=== PATIENT | male | born 1980 | race Two or more races ===

== ENCOUNTER 2022-12-02 04:01 | Inpatient (IN) | payer MEDICAID ==
[~2022-12-02] VITALS: Ht 177.8 cm; Wt 83.4 kg
[2022-12-02 05:21] VITALS: PULSE 79; RESP 25; O2SAT 93
[2022-12-02 05:42] LABS: Alanine Aminotransferase 67 U/L (7-40); Albumin 4.7 g/dL (3.2-4.8); Alkaline Phosphatase 82 U/L (46-116); Anion Gap 15 (5-15); Aspartate Aminotransferase 84 U/L (13-40); BUN/Creatinine Ratio 9.1 (10.0-20.0); Blood Alcohol < 3.0 mg/dL (<10); Blood Urea Nitrogen 8 mg/dL (9-23); Calcium 9.5 mg/dL (8.7-10.4); Carbon Dioxide 19 mmol/L (20-30); Chloride 100 mmol/L (98-107); Glucose 144 mg/dL (74-106); Sodium 134 mmol/L (136-145)
[2022-12-02 05:43] LABS: Acetaminophen < 2.0 UG/ML (10.0-20.0); Bilirubin, Total 0.8 mg/dL (0.2-1.0); Total Protein 8.4 g/dL (5.7-8.2)
[2022-12-02 05:48] LABS: Salicylate < 3.0 mg/dL (2.8-20.0)
[2022-12-02 06:18] LABS: Basophils # (auto) 0 10 ^3/uL (0-0.2); Basophils % (auto) 0.2 % (0.0-2.0); Eosinophils # (auto) 0 10 ^3/uL (0-0.8); Hematocrit 34.9 % (41.0-53.0); Hemoglobin 11.4 g/dL (13.5-17.5); Lymphocytes # (auto) 0.4 10 ^3/uL (0.4-5.4); Lymphocytes % (auto) 5.9 % (10.0-50.0); Mean Corpuscular Hemoglobin 30.8 pg (28.0-32.0); Mean Corpuscular Hgb Conc. 32.7 g/dL (32.0-36.0); Mean Corpuscular Volume 94.3 fL (80.0-100.0); Monocytes # (auto) 0.9 10 ^3/uL (0-1.3); Monocytes % (auto) 14.3 % (0.0-12.0); Neutrophils # (auto) 4.8 10 ^3/uL (1.6-8.6); Neutrophils % (auto) 79.6 % (37.0-80.0); Nucleated Red Blood Cells % 0.1 %; Red Cell Distribution Width 16.7 % (11.8-14.3)
[2022-12-02 06:30] LABS: Urine Bacteria NONE SEEN /hpf (None Seen); Urine Blood 1+ /uL (Negative); Urine Clarity Clear (Clear); Urine Color Yellow (Yellow); Urine Mucus FEW (None Seen); Urine Protein, UAD 1+ (Negative); Urine Specific Gravity 1.019 (1.001-1.035); Urine Urobilinogen Normal (Negative); Urine WBC 1 /hpf (0 - 3)
[2022-12-02] MEDS ORDERED: ACETAMINOPHEN 325 MG TAB PO ONE (07:00)
[2022-12-02 07:40] VITALS: O2SAT 95
[2022-12-02] MEDS ORDERED: TETANUS-DIPTH-ACEL PERTUSSIS 0.5ML SYR Tdap IM ONE (08:30)
[2022-12-02] MEDS ORDERED: LORazepam 2MG/ML-1ML VIAL IV ONE ×2 (08:30→09:30)
[2022-12-02 08:57] LABS: Amphetamine Screen, Urine Neg (NEGATIVE); Barbiturate Scree,Urine Neg (NEGATIVE); Benzodiazephine Screen, Urine Neg (NEGATIVE); Cocaine Screen, Urine Neg (NEGATIVE); Opiate Scree,Urine Neg (NEGATIVE)
[2022-12-02 08:58] LABS: Cannabinoid Screen, Urine Neg (NEGATIVE); Phencyclidine Screen, Urine Neg (NEGATIVE)
[2022-12-02] MEDS ORDERED: ONDANSETRON HCL 4 MG/2 ML VIAL IV ONE (09:30)
[2022-12-02] MEDS ORDERED: LORazepam 2MG/ML-1ML VIAL IV PRN (10:45)
[2022-12-02] MEDS ORDERED: MORPHINE SULFATE INJ 2 MG/ml SYRG IV PRN (10:45)
[2022-12-02] MEDS ORDERED: THIAMINE 100mg/ml INJ (200mg/2ml VIAL) IV ONE (10:45)
[2022-12-02] MEDS ORDERED: NITROGLYCERIN 0.4 MG SL TAB SL PRN (10:45)
[2022-12-02] MEDS ORDERED: MULTIPLE VITAMIN TAB PO ONE (10:45)
[2022-12-02] MEDS ORDERED: ACETAMINOPHEN 325 MG TAB PO PRN (10:45)
[2022-12-02] MEDS ORDERED: FOLIC ACID 1 MG in D5W 5% 50 ML INJ SCH ×2 (10:45→13:30)
[2022-12-02] MEDS ORDERED: ONDANSETRON HCL 4 MG/2 ML VIAL IV PRN (10:45)
[2022-12-02] MEDS: SODIUM CHLORIDE 0.9% 1,000 ML IV SCH ×2 (11:00→19:13)
[2022-12-02 11:12] LABS: Triglycerides 80 mg/dL (< 150)
[2022-12-02 11:13] LABS: LDL Cholesterol 130 mg/dL (< 100)
[2022-12-02 11:14] LABS: Cholesterol 236 mg/dL (< 200); HDL Cholesterol 101 mg/dL (40-59)
[2022-12-02] MEDS: FOLIC ACID 1 MG, MULTIPLE VITAMIN 10 ML, MAGNESIUM SULF SDV 50% 8 MEQ, THIAMINE INJ 100... INJ SCH ×5 (15:29)
[2022-12-02 19:30] VITALS: PULSE 82; O2SAT 96
[2022-12-02 22:30] VITALS: BP 140/92; PULSE 63; RESP 18; TEMP 98.4; O2SAT 97
[2022-12-02 22:32] VITALS: PULSE 78; RESP 17; O2SAT 97
[2022-12-03] MEDS: SODIUM CHLORIDE 0.9% 1,000 ML IV SCH ×2 (03:06→11:45)
[2022-12-03 05:00] VITALS: BP 137/89; PULSE 64; RESP 18; TEMP 98.2; O2SAT 98
[2022-12-03 06:38] LABS: Basophils # (auto) 0 10 ^3/uL (0-0.2); Basophils % (auto) 0.5 % (0.0-2.0); Eosinophils # (auto) 0.1 10 ^3/uL (0-0.8); Eosinophils % (auto) 1.9 % (0.0-7.0); Hematocrit 34.6 % (41.0-53.0); Lymphocytes # (auto) 0.9 10 ^3/uL (0.4-5.4); Lymphocytes % (auto) 22.4 % (10.0-50.0); Mean Corpuscular Hemoglobin 30.9 pg (28.0-32.0); Mean Corpuscular Hgb Conc. 31.9 g/dL (32.0-36.0); Mean Corpuscular Volume 96.9 fL (80.0-100.0); Monocytes # (auto) 0.7 10 ^3/uL (0-1.3); Monocytes % (auto) 17.5 % (0.0-12.0); Neutrophils # (auto) 2.3 10 ^3/uL (1.6-8.6); Neutrophils % (auto) 57.7 % (37.0-80.0); Red Blood Cells 3.57 10^6/uL (4.5-5.90); Red Cell Distribution Width 16.4 % (11.8-14.3)
[2022-12-03 06:57] LABS: Alanine Aminotransferase 56 U/L (7-40); Albumin 4.5 g/dL (3.2-4.8); Alkaline Phosphatase 69 U/L (46-116); Anion Gap 7 (5-15); Aspartate Aminotransferase 81 U/L (13-40); BUN/Creatinine Ratio 11.5 (10.0-20.0); Bilirubin, Total 0.8 mg/dL (0.2-1.0); Blood Urea Nitrogen 9 mg/dL (9-23); Carbon Dioxide 23 mmol/L (20-30); Chloride 105 mmol/L (98-107); Glucose 102 mg/dL (74-106); Potassium 3.6 mmol/L (3.5-5.1); Sodium 135 mmol/L (136-145); Total Protein 7.3 g/dL (5.7-8.2)
[2022-12-03 08:00] VITALS: PULSE 56; RESP 16
[2022-12-03 08:30] VITALS: BP 145/92; PULSE 69; RESP 19; TEMP 98.8; O2SAT 96
[2022-12-03] MEDS ORDERED: THIAMINE 100mg/ml INJ (200mg/2ml VIAL) IV SCH (10:00)
[2022-12-03] MEDS ORDERED: MULTIPLE VITAMIN TAB PO SCH (10:00)
[2022-12-03 13:00] VITALS: BP 157/72; PULSE 58; RESP 20; TEMP 98.7; O2SAT 95
[2022-12-03] MEDS: FOLIC ACID 1 MG, MULTIPLE VITAMIN 10 ML, MAGNESIUM SULF SDV 50% 8 MEQ, THIAMINE INJ 100... INJ SCH ×5 (13:07)
[2022-12-03 16:30] VITALS: BP 144/90; PULSE 56; RESP 19; TEMP 99.1; O2SAT 97
[2022-12-03 22:00] VITALS: BP 152/93; PULSE 67; RESP 20; TEMP 98.9; O2SAT 99
[2022-12-04 08:00] VITALS: PULSE 67; RESP 16
[2022-12-04 09:00] VITALS: BP 131/72; PULSE 67; RESP 16; TEMP 97.7; O2SAT 98
[2022-12-04] MEDS ORDERED: PANTOPRAZOLE 40 MG TAB PO SCH (10:00)
[2022-12-04] MEDS ORDERED: THIAMINE HCL 100 MG TAB PO SCH (10:00)
[2022-12-04 12:39] VITALS: BP 126/90; PULSE 64; RESP 18; TEMP 98.9; O2SAT 98
[2022-12-04] MEDS: FOLIC ACID 1 MG, MULTIPLE VITAMIN 10 ML, MAGNESIUM SULF SDV 50% 8 MEQ, THIAMINE INJ 100... INJ SCH ×5 (13:58)
[2022-12-04 16:44] VITALS: BP 146/90; PULSE 59; RESP 17; TEMP 98.9; O2SAT 98
[2022-12-04 20:00] VITALS: PULSE 71; RESP 22
[2022-12-06 00:06] LABS: Vitamin D, 25-Hydroxy 25.1 ng/mL (30.0-100.0)
== END 2022-12-04 22:55 | disposition left against medical advice (07) | DRG 53 ==
LOC: ER 04:01 → EDBD 04:01 → TELE 10:46 → TELE-WESTW 22:11 → WEST WING 12-04 00:46
PROVIDERS: ADMIT Nurse Practitioner Family; ATTEND Nurse Practitioner Acute Care
DX: R56.9 Unspecified convulsions (principal); E66.01 Morbid (severe) obesity due to excess calories; F10.239 Alcohol dependence with withdrawal, unspecified; R73.9 Hyperglycemia, unspecified; F20.9 Schizophrenia, unspecified; F32.A Depression, unspecified; F41.9 Anxiety disorder, unspecified; Z59.00 Homelessness unspecified; Z68.26 Body mass index [BMI] 26.0-26.9, adult
CPT/HCPCS: 36415; 70450; 71045; 76705; 80053; 80061; 80307; 80320; 80329; 81001; 82306; 82746; 83036; 83735; 84425; 84443; 85025; 87081; 90715; 93005; G0378; J2405; J7060